=== PATIENT | female | born 1975 | race Caucasian/White ===

== ENCOUNTER 2022-08-11 09:45 | Outpatient (RCR) | payer BC, SELFPAY | END 2022-08-11 12:48 | disposition home or self-care (01) | PROVIDERS: PCP Orthopaedic Surgery; Visit Provider Orthopaedic Surgery | DX: R26.89 Other abnormalities of gait and mobility (principal); Z51.89 Encounter for other specified aftercare; M25.562 Pain in left knee; M25.561 Pain in right knee; Z96.652 Presence of left artificial knee joint | CPT/HCPCS: 97032; 97110; 97112; 97140; 97162 ==

== ENCOUNTER 2023-03-04 10:00 | Outpatient (RCR) | payer BC, SELFPAY | END 2023-07-02 23:59 | disposition home or self-care (01) | PROVIDERS: PCP Orthopaedic Surgery; Visit Provider Orthopaedic Surgery | DX: M25.561 Pain in right knee (principal); G89.29 Other chronic pain; R26.89 Other abnormalities of gait and mobility; Z51.89 Encounter for other specified aftercare | CPT/HCPCS: 97016; 97032; 97110; 97112; 97140; 97163 ==